=== PATIENT | female | born 2000 | race Two or more races ===

== ENCOUNTER 2024-01-04 17:35 | Emergency (ER) | payer MEDICAID, OTHER ==
[~2024-01-04] VITALS: Ht 167.6 cm; Wt 84.6 kg
[2024-01-04 18:21] VITALS: BP 125/81; PULSE 79; RESP 16; TEMP 98.8; O2SAT 99
[2024-01-04] MEDS: TETANUS-DIPTH-ACEL PERTUSSIS 0.5ML SYR Tdap IM ONE (19:15)
[2024-01-07 08:33] LABS: Hepatitis B Surface Antibody Negative (Negative)
[2024-01-07 08:45] LABS: Hepatitis B Surface Antigen Negative (Negative)
== END 2024-01-04 20:09 | disposition home or self-care (01) ==
LOC: ER 17:35
DX: S60.415A Abrasion of left ring finger, initial encounter (principal); Z77.21 Contact with and (suspected) exposure to potentially hazardous body fluids; W26.8XXA Contact with other sharp object(s), not elsewhere classified, initial encounter; Y93.89 Activity, other specified; Y92.89 Other specified places as the place of occurrence of the external cause; Y99.8 Other external cause status
CPT/HCPCS: 36415; 86703; 86706; 86803; 87340; 90471; 90715